=== PATIENT | female | born 1950 | race Caucasian/White ===

== ENCOUNTER 2020-06-03 20:11 | Emergency (ER) | payer OTHER ==
[~2020-06-03] VITALS: Ht 160 cm; Wt 117.9 kg
[~2020-06-03 20:11] MED LIST: ENALAPRIL MALEA10 MG NGT; GLIBURIDE; NORVASC5 MG PO
[2020-06-03] MEDS ORDERED: ENALAPRIL MALEA10 MG (20:22)
[2020-06-03] MEDS ORDERED: NORVASC10 MG (20:23)
[2020-06-03] MEDS ORDERED: FORTAMET1000 MG (20:23)
[2020-06-03] MEDS ORDERED: GLIPIZIDE XL10 MG (20:24)
[2020-06-03] MEDS ORDERED: SIMVASTATIN5 MG PO (20:24)
[2020-06-03] MEDS ORDERED: TOPROL XL25 MG (20:24)
[2020-06-04] MEDS ORDERED: ULTRAM50 MG PO (00:18)
== END 2020-06-04 01:07 | disposition home or self-care (01) ==
LOC: ER 20:11
DX: S60.211A Contusion of right wrist, initial encounter (principal); M25.531 Pain in right wrist; W01.198A Fall on same level from slipping, tripping and stumbling with subsequent striking against other object, initial encounter; Y93.89 Activity, other specified; Y92.59 Other trade areas as the place of occurrence of the external cause; Y99.8 Other external cause status

== ENCOUNTER 2020-06-05 11:12 | Outpatient (CLI) | payer OTHER ==
[~2020-06-05 11:12] MED LIST changes: +ENALAPRIL MALEA10 MG; +FORTAMET1000 MG; +GLIPIZIDE XL10 MG; +NORVASC10 MG; +SIMVASTATIN5 MG PO; +TOPROL XL25 MG; +ULTRAM50 MG PO
== END 2020-06-05 11:32 | disposition home or self-care (01) ==
LOC: TOM 11:12
PROVIDERS: ATTEND Orthopaedic Surgery
DX: M25.511 Pain in right shoulder (principal); S62.024A Nondisplaced fracture of middle third of navicular [scaphoid] bone of right wrist, initial encounter for closed fracture

== ENCOUNTER 2020-09-23 06:44 | Emergency (ER) | payer OTHER ==
[~2020-09-23] VITALS: Ht 160 cm; Wt 114.8 kg
[2020-09-23] MEDS ORDERED: MACRODANTIN100 M1 PO (09:10)
== END 2020-09-23 09:25 | disposition home or self-care (01) ==
LOC: ER 06:44
DX: N30.81 Other cystitis with hematuria (principal)

== ENCOUNTER 2024-02-12 07:47 | Emergency (ER) | payer OTHER ==
[~2024-02-12] VITALS: Ht 160 cm; Wt 103.9 kg
[~2024-02-12 07:47] MED LIST changes: +MACRODANTIN100 M1 PO
[2024-02-12] MEDS ORDERED: MECLIZINE HCL 25 MG TABLET PO ONE (10:00)
[2024-02-12 10:20] LABS: HEMATOCRIT 40.1 % (36.0-45.00); HEMOGLOBIN 13.5 g/dL (12.0-15.00); MEAN CELL VOLUME 86.2 fL (80.00-100.00); MEAN CORPUSCULAR HEMOGLOBIN 29.1 pg (27.00-32.0); MEAN CORPUSCULAR HGB CONC 33.7 g/dl (32.0-36.0); PLATELET COUNT 258 K/uL (150-450); RED BLOOD COUNT 4.65 M/uL (4.00-6.00); RED CELL DISTRIBUTION WIDTH 13.2 % (11.5-14.5)
== END 2024-02-12 11:38 ==
LOC: ER 07:49
PROVIDERS: General Practice
DX: R42 Dizziness and giddiness (principal); Z91.041 Radiographic dye allergy status; Z91.013 Allergy to seafood; M19.90 Unspecified osteoarthritis, unspecified site; I10 Essential (primary) hypertension; E78.00 Pure hypercholesterolemia, unspecified; F41.8 Other specified anxiety disorders; E11.9 Type 2 diabetes mellitus without complications; Z79.84 Long term (current) use of oral hypoglycemic drugs

== ENCOUNTER 2024-02-18 18:29 | Emergency (ER) | payer OTHER ==
[~2024-02-18] VITALS: Ht 160 cm; Wt 103.9 kg
[2024-02-18 19:42] LABS: HEMATOCRIT 39.6 % (36.0-45.00); HEMOGLOBIN 13.1 g/dL (12.0-15.00); MEAN CELL VOLUME 86.7 fL (80.00-100.00); MEAN CORPUSCULAR HEMOGLOBIN 28.7 pg (27.00-32.0); MEAN CORPUSCULAR HGB CONC 33.1 g/dl (32.0-36.0); PLATELET COUNT 236 K/uL (150-450); RED BLOOD COUNT 4.57 M/uL (4.00-6.00)
[2024-02-18 20:07] LABS: ALBUMIN 3.7 gm/dL (3.4-5.0); BILIRUBIN TOTAL 0.49 mg/dL (0.3-1.2); CALCIUM 9.5 mg/dL (8.5-10.1); CREATININE SERUM 0.9 mg/dL (0.55-1.02); GFR 61.04; GLOBULINA 3.7 G/DL (2.4-3.5); POTASSIUM 4.38 mEq/L (3.5-5.1); TOTAL PROTEIN 7.4 gm/dL (6.4-8.2)
== END 2024-02-18 20:35 | disposition home or self-care (01) ==
LOC: ER 18:29
PROVIDERS: General Practice
DX: I10 Essential (primary) hypertension (principal); Z91.041 Radiographic dye allergy status

== ENCOUNTER 2024-04-14 12:15 | Emergency (ER) | payer OTHER ==
[~2024-04-14] VITALS: Ht 160 cm; Wt 104.3 kg
[2024-04-14] MEDS ORDERED: CEFTRIAXONE SODIUM 1,000 MG VIAL IM STA (16:40)
[2024-04-14] MEDS ORDERED: CEFTRIAXONE SODIUM 1,000 MG VIAL ONE (17:06)
== END 2024-04-14 17:31 | disposition home or self-care (01) ==
LOC: ER 12:17
DX: S81.852A Open bite, left lower leg, initial encounter (principal); W64.XXXA Exposure to other animate mechanical forces, initial encounter; Y93.89 Activity, other specified; Y92.89 Other specified places as the place of occurrence of the external cause; Y99.8 Other external cause status; J03.90 Acute tonsillitis, unspecified; Z91.041 Radiographic dye allergy status